=== PATIENT | female | born 1990 | race African-American/Black ===

== ENCOUNTER 2022-06-18 16:28 | Inpatient (IN) | payer OTHER, SELFPAY ==
[~2022-06-18 16:28] MED LIST: ISOVUE-370 76%-LOCM 1 ML ONE
[2022-06-18] MEDS ORDERED: CEFAZOLIN 1 GM VIAL ONE (16:35)
[2022-06-18] MEDS ORDERED: Boostrix 0.5 ML (Tdap) VIAL ONE (16:35)
[2022-06-18 16:56] LABS: #Basophils 0.1 thou/uL (0.0-0.2); #Lymphocytes 1.6 thou/uL (1.20-3.40); #Monocytes 0.7 thou/uL (0.11-0.59); #Neutrophils 8.5 thou/uL (1.40-6.50); %Basophils 0.5 % (0.0-1.0); %Eosinophils 0.4 % (0.0-10.0); %Lymphocytes 14.3 % (21.0-51.0); %Neutrophils 78.7 % (42.0-75.0); Hemoglobin 10.6 g/dL (12.0-16.0); Mean Corpuscular HGB CONC 31.5 g/dL (32.0-36.0); Mean Corpuscular Hemoglobin 25.9 pg (27.0-31.0); Mean Corpuscular Volume 82.1 fL (78.0-98.0); Mean Platelet Volume 12.1 fL (7.4-10.4); Platelet Count 145 thou/uL (130-400); RBC Distribution Width 15.7 % (11.5-14.5); Red Blood Cell (RBC) Count 4.12 mill/uL (4.20-5.40); White Blood Cell (WBC) Count 10.8 thou/uL (4.8-10.8)
[2022-06-18 17:17] LABS: Large Platelets SLIGHT; MDiff Complete? YES; RBC Morphology Normal
[2022-06-18 17:18] LABS: ALT (SGPT) 12 U/L (8-55); AST (SGOT) 18 U/L (5-34); Albumin 3.9 g/dL (3.5-5.0); Alcohol Less than 10 mg/dL (Less than 10); Alkaline Phosphatase 54 U/L (40-110); Anion Gap 12 mmol/L (10-20); BUN (Urea Nitrogen) 11 mg/dL (7.0-18.7); Bilirubin, Total 0.4 mg/dL (0.2-1.2); Calc. Creatinine Clearance 0 mL/min (70-130); Calcium 8.9 mg/dL (7.8-10.44); Carbon Dioxide 23 mmol/L (22-29); Chloride 107 mmol/L (98-107); Estimated GFR 108; Globulin 3.2 g/dL (2.4-3.5); Glucose 96 mg/dL (70-105); Potassium 3.9 mmol/L (3.5-5.1); Protein, Total 7.1 g/dL (6.0-8.3); Sodium 138 mmol/L (136-145)
[2022-06-18] MEDS ORDERED: Lidocaine 1% PF 5 ML VIAL ONE (17:21)
[2022-06-18] MEDS ORDERED: Fentanyl 100 MCG/2 ML VIAL ONE (17:32)
[2022-06-18] MEDS ORDERED: Ketorolac Tromethamine 30 MG/ML VIAL ONE (17:32)
[2022-06-18] MEDS ORDERED: Promethazine HCl 25 MG/ML VIAL IM PRN (18:35)
[2022-06-18] MEDS ORDERED: Ondansetron PF 4 MG/2 ML Vial IVP PRN (18:35)
[2022-06-18] MEDS ORDERED: hydrALAZINE 20 MG/ML VIAL SLOW IVP PRN ×2 (18:35→18:38)
[2022-06-18] MEDS ORDERED: Cyclobenzaprine 10 MG TAB PO PRN (18:38)
[2022-06-18] MEDS ORDERED: Morphine 2 MG/ML VIAL SLOW IVP PRN (18:38)
[2022-06-18] MEDS ORDERED: TETANUS, DIPHTHERIA TOX,ADULT (TDVAX) 0.5 ML VIAL IM ONE (18:39)
[2022-06-18] MEDS ORDERED: diphenhydrAMINE 25 MG CAP PO PRN (18:43)
[2022-06-18] MEDS ORDERED: Piperacillin/Tazobactam 3.375 GM in Sodium Chloride 0.9% 100 ML IVPB SCH (19:00)
[2022-06-18 19:08] LABS: Bilirubin Negative (Negative); Blood, Urine Negative (Negative); Clarity Clear (Clear); Glucose, Urine (Dipstick) Normal (Negative); Ketone, Urine 10 mg/dL (Negative); Leukocyte Negative Leu/uL (Negative); Nitrite Negative (Negative); Protein, Urine (Dipstick) Negative (Neg-Trace); Specific Gravity, Urine 1.046 (1.002-1.036); Urobilinogen Normal mg/dL (Less than 2)
[2022-06-18 19:10] LABS: Pregnancy Test - Urine (BHCG) Negative (Negative); Pregu Control Background? CLEAR/WHITE (CLR/WHITE); Pregu Control Bar Appear? YES (CONTROL BAR); Specific Gravity 1.046 (1.002-1.036)
[2022-06-18 20:08] VITALS: BMI 25.0
[2022-06-18] MEDS: Sodium Chloride 0.9% 1,000 ML IV SCH (20:26)
[2022-06-18] MEDS: Senokot S 8.6-50 MG TAB PO SCH (20:27)
[2022-06-18] MEDS ORDERED: Famotidine/PF 20 mg/2ml Vial SLOW IVP SCH (21:00)
[2022-06-18] MEDS: Acetaminophen 500 MG TAB PO SCH (23:17)
[2022-06-18] MEDS: traMADol HCl 50 MG TAB PO SCH (23:17)
[2022-06-18] MEDS: Piperacillin/Tazobactam 3.375 GM in Sodium Chloride 0.9% 100 ML IVPB SCH (23:19)
[2022-06-19] MEDS: Sodium Chloride 0.9% 1,000 ML IV SCH ×3 (03:09→22:38)
[2022-06-19] MEDS: Acetaminophen 500 MG TAB PO SCH ×4 (05:50→23:11)
[2022-06-19] MEDS: traMADol HCl 50 MG TAB PO SCH ×4 (05:50→23:12)
[2022-06-19 06:10] LABS: #Lymphocytes 2.1 thou/uL (1.20-3.40); #Monocytes 0.7 thou/uL (0.11-0.59); #Neutrophils 3.8 thou/uL (1.40-6.50); %Basophils 0.5 % (0.0-1.0); %Eosinophils 0.7 % (0.0-10.0); %Lymphocytes 32.1 % (21.0-51.0); %Neutrophils 56.8 % (42.0-75.0); Hemoglobin 9.9 g/dL (12.0-16.0); Mean Corpuscular HGB CONC 30.4 g/dL (32.0-36.0); Mean Corpuscular Hemoglobin 25.4 pg (27.0-31.0); Mean Corpuscular Volume 83.5 fL (78.0-98.0); Mean Platelet Volume 11.8 fL (7.4-10.4); Platelet Count 131 thou/uL (130-400); RBC Distribution Width 15.8 % (11.5-14.5); Red Blood Cell (RBC) Count 3.91 mill/uL (4.20-5.40); White Blood Cell (WBC) Count 6.6 thou/uL (4.8-10.8)
[2022-06-19 06:19] LABS: Anion Gap 13 mmol/L (10-20); BUN (Urea Nitrogen) 8 mg/dL (7.0-18.7); Calc. Creatinine Clearance 118 mL/min (70-130); Calcium 8.6 mg/dL (7.8-10.44); Carbon Dioxide 20 mmol/L (22-29); Chloride 107 mmol/L (98-107); Estimated GFR 111; Glucose 87 mg/dL (70-105); Potassium 3.9 mmol/L (3.5-5.1); Sodium 136 mmol/L (136-145)
[2022-06-19] MEDS: Piperacillin/Tazobactam 3.375 GM in Sodium Chloride 0.9% 100 ML IVPB SCH ×3 (08:21→23:12)
[2022-06-19] MEDS: Senokot S 8.6-50 MG TAB PO SCH ×2 (08:21→20:25)
[2022-06-19] MEDS: Polyethylene Glycol 3350 17 GM Packet PO SCH (08:21)
[2022-06-19] MEDS: Famotidine 20 MG TAB PO SCH ×2 (08:25→20:24)
[2022-06-19] MEDS ORDERED: Lorazepam 1 MG TAB PO SCH (18:15)
[2022-06-19] MEDS ORDERED: Midazolam HCl 2 mg/2 ml Vial SLOW IVP SCH (18:15)
[2022-06-19] MEDS: traMADol HCl 50 MG TAB PO PRN (20:24)
[2022-06-20] MEDS ORDERED: Vancomycin 1 GM in Premix Bag 1 BAG IVPB SCH (01:30)
[2022-06-20] MEDS: Acetaminophen 500 MG TAB PO SCH ×4 (05:07→23:57)
[2022-06-20] MEDS: traMADol HCl 50 MG TAB PO SCH ×4 (05:07→23:57)
[2022-06-20] MEDS: Sodium Chloride 0.9% 1,000 ML IV SCH ×2 (05:09→18:03)
[2022-06-20] MEDS ORDERED: Bacitracin Zinc Ointment 30 gm TUBE ONE (07:44)
[2022-06-20] MEDS ORDERED: Mineral Oil Sterile 10 ML VIAL ONE (07:44)
[2022-06-20] MEDS ORDERED: Neomycin-Polymyxin 1 ML AMP ONE ×2 (07:44→09:10)
[2022-06-20] MEDS ORDERED: Thrombin 5000 UNITS/5 ML VIAL ONE (07:44)
[2022-06-20] MEDS ORDERED: Bupivacaine PF 0.5% 30 ML VIAL ONE (07:44)
[2022-06-20] MEDS ORDERED: Piperacillin/Tazobactam 3.375 GM VIAL ONE (07:59)
[2022-06-20] MEDS ORDERED: Sodium Chloride 0.9% 100 ML ONE (08:00)
[2022-06-20] MEDS: Piperacillin/Tazobactam 3.375 GM in Sodium Chloride 0.9% 100 ML IVPB SCH ×3 (08:02→23:57)
[2022-06-20] MEDS ORDERED: Vancomycin 1 GM/200 ML BAG ONE (08:07)
[2022-06-20] MEDS ORDERED: fentaNYL Citrate/PF 100 MCG/2 ML SYRINGE ONE (08:11)
[2022-06-20] MEDS ORDERED: Lidocaine 1% PF 5 ML VIAL ONE (08:32)
[2022-06-20] MEDS ORDERED: Ketorolac Tromethamine 30 MG/ML VIAL ONE (08:32)
[2022-06-20] MEDS ORDERED: PROPOFOL 200 MG/20 ML VIAL ONE (08:32)
[2022-06-20] MEDS ORDERED: Dexamethasone 20 MG/5 ML VIAL ONE (08:32)
[2022-06-20] MEDS ORDERED: Ondansetron PF 4 MG/2 ML Vial ONE (08:32)
[2022-06-20] MEDS: Senokot S 8.6-50 MG TAB PO SCH ×2 (09:37→21:06)
[2022-06-20] MEDS: Famotidine 20 MG TAB PO SCH ×2 (09:37→21:06)
[2022-06-20] MEDS: Polyethylene Glycol 3350 17 GM Packet PO SCH (09:37)
[2022-06-20] MEDS ORDERED: Meperidine HCl/PF 25 MG/ML VIAL SLOW IVP PRN (10:12)
[2022-06-20] MEDS ORDERED: Ondansetron HCl/PF 4 MG/2 ML Vial IVP PRN (10:12)
[2022-06-20] MEDS ORDERED: Promethazine HCl 25 MG/ML VIAL IVPB PRN (10:12)
[2022-06-20] MEDS ORDERED: Ketorolac Tromethamine 30 MG/ML VIAL IVP PRN (10:12)
[2022-06-20] MEDS ORDERED: PACU-Morphine 4MG/ML VIAL SLOW IVP PRN (10:12)
[2022-06-20] MEDS ORDERED: HYDROmorphone 2 MG/ML VIAL SLOW IVP PRN (10:12)
[2022-06-20] MEDS ORDERED: Promethazine HCl 25 MG/ML VIAL IM PRN (10:12)
[2022-06-20] MEDS ORDERED: Morphine Sulfate 2 MG/ML SYRINGE SLOW IVP PRN (10:12)
[2022-06-20] MEDS ORDERED: Fentanyl 100 MCG/2 ML VIAL ONE (10:33)
[2022-06-20] MEDS ORDERED: HYDROmorphone 2 MG/ML VIAL ONE (10:37)
[2022-06-20] MEDS ORDERED: Morphine 2 MG/ML VIAL SLOW IVP PRN (12:00)
[2022-06-20] MEDS: Gabapentin 300 MG CAP PO SCH ×2 (18:04→21:05)
[2022-06-20] MEDS: traMADol HCl 50 MG TAB PO PRN (18:16)
[2022-06-21] MEDS: traMADol HCl 50 MG TAB PO SCH ×2 (05:28→13:37)
[2022-06-21] MEDS: Acetaminophen 500 MG TAB PO SCH ×2 (05:28→13:37)
[2022-06-21 06:20] LABS: #Lymphocytes 1.5 thou/uL (1.20-3.40); #Monocytes 0.6 thou/uL (0.11-0.59); #Neutrophils 3.8 thou/uL (1.40-6.50); %Eosinophils 0.3 % (0.0-10.0); %Lymphocytes 25.5 % (21.0-51.0); %Monocytes 9.9 % (0.0-10.0); %Neutrophils 64.3 % (42.0-75.0); Hemoglobin 9.9 g/dL (12.0-16.0); Mean Corpuscular HGB CONC 30.9 g/dL (32.0-36.0); Mean Corpuscular Hemoglobin 26.2 pg (27.0-31.0); Mean Corpuscular Volume 84.9 fL (78.0-98.0); Mean Platelet Volume 11.3 fL (7.4-10.4); Platelet Count 145 thou/uL (130-400); RBC Distribution Width 15.7 % (11.5-14.5); Red Blood Cell (RBC) Count 3.78 mill/uL (4.20-5.40); White Blood Cell (WBC) Count 5.9 thou/uL (4.8-10.8)
[2022-06-21] MEDS: Piperacillin/Tazobactam 3.375 GM in Sodium Chloride 0.9% 100 ML IVPB SCH (10:51)
[2022-06-21] MEDS: Senokot S 8.6-50 MG TAB PO SCH (10:52)
[2022-06-21] MEDS: Polyethylene Glycol 3350 17 GM Packet PO SCH (10:52)
[2022-06-21] MEDS: Famotidine 20 MG TAB PO SCH (10:52)
[2022-06-21] MEDS: Gabapentin 300 MG CAP PO SCH (10:52)
[2022-06-21 11:58] VITALS: BP 123/80; TEMP 98.1
[2022-06-21] MEDS: traMADol HCl 50 MG TAB PO PRN (13:37)
== END 2022-06-21 15:19 | disposition home or self-care (01) | DRG 578 ==
LOC: ERS 16:28 → SURG A 18:35
PROVIDERS: ADMIT Orthopaedic Surgery Hand Surgery; ATTEND Specialist
PROC: 0HREX74 Replacement of Left Lower Arm Skin with Autologous Tissue Substitute, Partial Thickness, External Approach (ICD-10-PCS; principal; 2022-06-20)
PROC: 0HRNX74 Replacement of Left Foot Skin with Autologous Tissue Substitute, Partial Thickness, External Approach (ICD-10-PCS; 2022-06-20)
PROC: 0JBH0ZZ Excision of Left Lower Arm Subcutaneous Tissue and Fascia, Open Approach (ICD-10-PCS; 2022-06-20)
PROC: 0QBR0ZZ Excision of Left Toe Phalanx, Open Approach (ICD-10-PCS; 2022-06-20)
PROC: 0PBL0ZZ Excision of Left Ulna, Open Approach (ICD-10-PCS; 2022-06-20)
PROC: 0HBHXZZ Excision of Right Upper Leg Skin, External Approach (ICD-10-PCS; 2022-06-20)
DX: S51.002A Unspecified open wound of left elbow, initial encounter (principal); Z23 Encounter for immunization; Z20.822 Contact with and (suspected) exposure to COVID-19; M50.221 Other cervical disc displacement at C4-C5 level; M51.27 Other intervertebral disc displacement, lumbosacral region; S91.102A Unspecified open wound of left great toe without damage to nail, initial encounter; G62.9 Polyneuropathy, unspecified; S61.502A Unspecified open wound of left wrist, initial encounter; V44.6XXA Car passenger injured in collision with heavy transport vehicle or bus in traffic accident, initial encounter; Y92.410 Unspecified street and highway as the place of occurrence of the external cause; Z91.041 Radiographic dye allergy status
CPT/HCPCS: 36415; 70450; 71045; 71260; 72125; 72141; 72146; 72148; 72170; 74177; 80048; 80053; 80307; 81003; 81025; 83605; 84146; 85025; 90471; 90715; 96365; 96375; 97139; G0390; J0690; J1100; J1170; J1885; J2270; J2405; J2543; J2704; J3010; J3370; J3490; J7050; Q9966; S0020; U0003; U0005